=== PATIENT | male | born 1930 | race Caucasian/White ===

== ENCOUNTER 2016-10-28 07:07 | Emergency (ER) | payer MEDICARE, OTHER ==
[~2016-10-28 07:07] MED LIST: ACETAMINOPHEN325 MG PO; ECOTRIN81 MG PO; LASIX40 MG PO; MELATONIN5 MG PO; NAPROXEN500 MG PO; PLAVIX 75 MG TA75 MG PO; POTASSIUM CHLO10 MEQ PO; ROPINIROLE HCL2 MG PO; TOPROL XL25 MG PO; ZESTRIL5 MG PO; ZOCOR 40 MG TAB40 MG PO
== END 2016-10-28 09:00 | disposition home or self-care (01) ==
LOC: ER1 07:07
DX: S01.81XA Laceration without foreign body of other part of head, initial encounter (principal); I11.9 Hypertensive heart disease without heart failure; I21.3 ST elevation (STEMI) myocardial infarction of unspecified site; W01.198A Fall on same level from slipping, tripping and stumbling with subsequent striking against other object, initial encounter
CPT/HCPCS: 12013; 70450; 72125; 90471; 90715; 99283